=== PATIENT | male | born 1985 | race Caucasian/White ===

== ENCOUNTER 2018-06-24 00:32 | Emergency (ER) | payer OTHER ==
[2018-06-24] MEDS ORDERED: CETIRIZINE 10 MG TABLET PO ONE (02:19)
[2018-06-24] MEDS ORDERED: DEXAMETHASONE 4 MG TABLET PO ONE (02:19)
[2018-06-24] MEDS ORDERED: EPINEPHRINE INJ/PF 1 MG/1 ML AMPULE IM ONE (02:20)
--- NOTE | 2018-06-24 02:54 | ER Document Report ---
ED General - General Chief Complaint: Allergic Reaction Stated Complaint: POSSIBLE ALLERGIC REACTION Time Seen by Provider: 06/24/18 01:57 Notes: Patient is a 32-year-old male without chronic medical problems who presents with 48 hours of scattered areas of urticaria and now with some swelling of his left upper lip. States that an area on his left arm that he thought was a bug bite started yesterday and was intensely pruritic, severe in nature with a constant, itching discomfort. States today he began having more areas of what appeared to be hives and then this evening his left upper lip became swollen. He took 25 mg of oral Benadryl with some improvement prior to arrival. No obvious trigger or worsening factor. Denies any history of similar symptoms in the past. Denies any difficulty breathing, vomiting, abdominal pain, or syncope although notes he intimately feels a burning sensation in his throat. He has not seen his primary care physician regarding today's concerns. Past Medical History - General Information source: Patient - Social History Smoking Status: Never Smoker Chew tobacco use (# tins/day): No Frequency of alcohol use: None Drug Abuse: None Lives with: Spouse/Significant other Family History: Reviewed & Not Pertinent Patient has suicidal ideation: No Patient has homicidal ideation: No Renal/ Medical History: Denies: Hx Peritoneal Dialysis Review of Systems - Review of Systems Notes: Constitutional: Negative for fever. HENT: Negative for sore throat. Eyes: Negative for visual changes. Cardiovascular: Negative for chest pain. Respiratory: Negative for shortness of breath. Gastrointestinal: Negative for abdominal pain, vomiting or diarrhea. Genitourinary: Negative for dysuria. Musculoskeletal: Negative for back pain. Skin: Positive for rash. Neurological: Negative for headaches, weakness or numbness. 10 point ROS negative except as marked above and in HPI. Physical Exam - Vital signs Vitals: Temp Pulse Resp BP Pulse Ox 97.9 F 57 L 16 132/81 H 98 06/24/18 00:41 06/24/18 00:41 06/24/18 00:41 06/24/18 00:41 06/24/18 00:41 Interpretation: Normal Notes: PHYSICAL EXAMINATION: GENERAL: Well-appearing, well-nourished and in no acute distress. HEAD: Atraumatic, normocephalic. EYES: Pupils equal round and reactive to light, extraocular movements intact, sclera anicteric, conjunctiva are normal. ENT: nares patent, oropharynx clear without exudates. Moist mucous membranes. Mild swelling to the left upper lip NECK: Normal range of motion, supple without lymphadenopathy LUNGS: Breath sounds clear to auscultation bilaterally and equal. No wheezes rales or rhonchi. HEART: Regular rate and rhythm without murmurs ABDOMEN: Soft, nontender, normoactive bowel sounds. No guarding, no rebound. No masses appreciated. EXTREMITIES: Normal range of motion, no pitting or edema. No cyanosis. NEUROLOGICAL: No focal neurological deficits. Moves all extremities spontaneo usly and on command. PSYCH: Normal mood, normal affect. SKIN: Warm, Dry, normal turgor, scattered urticarial lesions over the upper back, neck and bilateral upper extremities Course - Re-evaluation Re-evalutation: 06/24/18 02:51 Patient presents with symptoms consistent with an allergic reaction without anaphylaxis. Only cutaneous involvement with multiple areas of hives. Mild left upper lip swelling is also present. Vitals otherwise within normal limits at time of arrival. No respiratory, GI, cardiovascular, or oral pharyngeal symptoms. A trial of epinephrine for symptom resolution was offered to the patient. This did resolve the majority of the patient's hives. Will recommend ongoing antihistamine therapy as an outpatient. At this time will discharge with return precautions and follow-up recommendations. Verbal discharge instructions given a the bedside and opportunity for questions given. Medication warnings reviewed. Patient is in agreement with this plan and has verbalized understanding of return precautions and the need for primary care follow-up in the next 24-72 hours. - Vital Signs Vital signs: Temp Pulse Resp BP Pulse Ox 97.5 F 78 16 139/58 H 98 06/24/18 03:03 06/24/18 03:03 06/24/18 03:03 06/24/18 03:03 06/24/18 03:03 Discharge - Discharge Clinical Impression: Hives, Lip swelling Allergic reaction Qualifiers: Encounter type: initial encounter Qualified Code(s): T78.40XA - Allergy, unspecified, initial encounter Condition: Good Disposition: HOME, SELF-CARE Additional Instructions: You were seen today for hives. This can be either allergic, autoimmune, or environmental in origin. You can continue to take cetirizine 10mg up to 4 times daily as needed for itching.IF YOU DEVELOP DIFFICULTY BREATHING, SPREADING OF HIVES, VOMITING, LIGHTHEADEDNESS, IMMEDIATELY AND CALL 911. Please follow-up with your primary care physician in the next 1-2 days.
[2018-06-24 03:05] VITALS: BP 139/58
== END 2018-06-24 03:05 | disposition home or self-care (01) ==
LOC: ER 00:32
DX: T78.40XA Allergy, unspecified, initial encounter (principal); L50.9 Urticaria, unspecified; R22.0 Localized swelling, mass and lump, head; X58.XXXA Exposure to other specified factors, initial encounter
CPT/HCPCS: 99283; 96372; J0171